=== PATIENT | male | born 1960 | race Caucasian/White ===

== ENCOUNTER 2017-05-06 20:12 | Observation (INO) | payer BC, OTHER ==
[~2017-05-06] VITALS: Ht 177.8 cm; Wt 95.0 kg
[~2017-05-06 20:12] MED LIST: ASCO25TA PO; VIAG100T PO; [UNRECOGNIZED DRUG - CODE] PO
[2017-05-06] MEDS ORDERED: ADENOSINE 6MG/2ML INJECTION (J0153) As Ordered ONE (20:26)
[2017-05-06] MEDS ORDERED: METOPROLOL 5 MG/5 ML VIAL As Ordered ONE (20:30)
[2017-05-06] MEDS ORDERED: ADENOSINE 6MG/2ML INJECTION (J0153) IV STA (20:30)
[2017-05-06] MEDS: METOPROLOL 5 MG/5 ML VIAL IV SCH ×6 (20:35→22:55)
[2017-05-06 20:45] LABS: BASO # 0.1 K/mm3 (0.0-0.2); BASO % 0.5 % (0.0-1.0); EOS # 0.2 K/mm3 (0.0-0.50); EOS % 1.8 % (0.0-3.0); LARGE UNSTAINED CELL # 0.2 K/mm3 (0.0-0.4); LARGE UNSTAINED CELL % 1.2 % (0.0-4.0); LYMPH # 1.5 K/mm3 (1.5-4.5); LYMPH % 9.7 % (24.0-44.0); MEAN CORPUSCULAR HEMOGLOBIN 29.6 pg (27.0-33.0); MEAN CORPUSCULAR HGB CONC 34.1 g/dl (32.0-36.5); MEAN CORPUSCULAR VOLUME 87.1 fl (80.0-96.0); MONO # 0.8 K/mm3 (0.0-0.8); MONO % 5.6 % (0.0-5.0); NEUTROPHILS # 11.3 K/mm3 (1.8-7.7); NEUTROPHILS % 81.2 % (36.0-66.0); PLATELET COUNT, AUTOMATED 283 k/mm3 (150-450); RED CELL DISTRIBUTION WIDTH 13.3 % (11.5-14.5); WHITE BLOOD COUNT 13.9 K/mm3 (4.0-10.0)
[2017-05-06] MEDS ORDERED: NS 1,000 ML IV ONE (20:45)
[2017-05-06 21:01] LABS: ANION GAP 9 MEQ/L (8-16); BLOOD UREA NITROGEN 11 MG/DL (7-18); CALCIUM LEVEL 9.6 MG/DL (8.5-10.1); CARBON DIOXIDE LEVEL 26 MEQ/L (21-32); CHLORIDE LEVEL 107 MEQ/L (98-107); CREATININE FOR GFR 0.95 MG/DL (0.70-1.30); GLOMERULAR FILTRATION RATE > 60.0 (>56); GLUCOSE, FASTING 103 MG/DL (70-105); MAGNESIUM LEVEL 2.3 MG/DL (1.8-2.4); POTASSIUM SERUM 3.8 MEQ/L (3.5-5.1); SODIUM LEVEL 142 MEQ/L (136-145)
[2017-05-06] MEDS ORDERED: AMIODARONE HCL 150 MG in APPROPRIATE DILUENT 1 EA IV ONE (21:15)
[2017-05-06] MEDS ORDERED: METOPROLOL TART 50 MG TAB PO ONE (21:15)
[2017-05-06] MEDS ORDERED: VITA-130 PO (22:15)
[2017-05-06] MEDS ORDERED: SILD50TA PO (22:15)
[2017-05-06] MEDS ORDERED: VITA400C2 PO (22:15)
[2017-05-07] MEDS ORDERED: ACETAMINOPHEN TAB 650MG DOSE (2X325MG) PO PRN (01:00)
[2017-05-07 04:30] VITALS: BP 143/84
[2017-05-07] MEDS ORDERED: METOPROLOL TART 25 MG TABLET PO SCH (06:00)
[2017-05-07 08:00] VITALS: BP 123/78
[2017-05-07 08:22] VITALS: BP 123/78
--- NOTE | 2017-05-07 08:52 | CR ---
DATE OF CONSULTATION: 05/07/2017 REFERRING PHYSICIAN: Dr. Vasquez, emergency room. INDICATION: Atrial flutter. HISTORY OF PRESENT ILLNESS: Mr. Arenas is previously unknown to me. He is a very pleasant 57-year-old man who has no significant past medical history. He presented to the emergency room (ER) yesterday for sensation of palpitations. He tells me that the palpitations started just yesterday. He just did not feel "right." He noticed that each time he did something physical, his heart rate would be racing, and he would feel unusually tired. Eventually, when the symptoms started to be very prominent just after he took shower, he came to ER for evaluation. On his arrival, he was found to be in atrial flutter with 2:1 conduction and ventricular rate 164 beats per minute. He was given total three doses of intravenous (IV) metoprolol that did not have a significant effect but eventually received 50 mg of metoprolol and 150 mg IV amiodarone and converted to sinus rhythm. Then, during the night, he had some episode what looks to be atrial fibrillation that were short-lived and eventually converted to sinus rhythm and stayed in sinus rhythm towards morning hours. This morning, he feels well and would like to go home. He denies any associated chest discomfort or shortness of breath. There were no near-syncopal sensations. At his baseline, he is an active man and reports good exertional tolerance. He denies any anginal symptoms. He has not had any chronic diseases and has not seen a physician on regular basis. PAST MEDICAL HISTORY: Denies hypertension, diabetes, or dyslipidemia. He reports having colonoscopy last year after one episode of bloody bowel movement. Apparently, only hemorrhoids were found. 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 He quit smoking many years ago. Reports having one beer a day. FAMILY HISTORY: Is negative for coronary artery disease in first-degree relatives. His mother supposedly during surgery for some form of aneurysm. His father of lung cancer. REVIEW OF SYSTEMS: There is no history of stroke. No recent fever, chills, nausea, vomiting, and diarrhea. No other symptoms to suggest viral or other infection. He denies any excess alcohol. He does report that lately he has been under a large amount of stress related to reconstruction of his house. No chest pain. No syncope. No near-syncope. No abdominal pain. No genitourinary symptoms. No peripheral edema. No allergies. OUTPATIENT MEDICATIONS: - as needed Viagra use No other medications. PHYSICAL EXAMINATION: Mr. Arenas is a pleasant man. He is in no distress, comfortably lying in emergency room bed. Blood pressure 123/78, heart rate has been in 60s. He is afebrile. He is in sinus rhythm. Saturation 97% room air. Weight is documented 95 kg. His jugular venous pressure (JVP) is not elevated. I do not appreciate any carotid bruit. Lungs are clear to auscultation. Heart examination reveals regular rhythm. No gallop, rub, or murmur is appreciated. Abdomen is soft without tenderness or rebound tenderness. No hepatosplenomegaly. No peripheral edema. Good peripheral pulses. Neurologically, he is intact. No skin lesions. 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 Basic metabolic panel is normal. He has two sets of cardiac enzymes that are normal. There is an electrocardiogram (ECG) from yesterday 2029 revealing typical atrial flutter with ventricular rate 164 beats per minute; and then there is another electrocardiogram (EKG) from 02:16 this morning revealing sinus rhythm with one nonconducted PAC, and yet another one from last night at 2320 revealing sinus rhythm and delayed R-wave progression but otherwise fairly unremarkable EKG. ASSESSMENT AND PLAN: Mr. Arenas is a 57-year-old man who has no significant past medical history. Presents with atrial flutter with 2:1 conduction. He converted to sinus rhythm after receiving some metoprolol and a single dose of amiodarone. He feels better this morning. He has normal physical examination, and the arrhythmia, besides palpitations, was not associated with any anginal symptoms or any shortness of breath. In my opinion, the patient can be discharged home. I would keep him on full-dose aspirin and metoprolol 25 mg twice a day. I will schedule followup appointment in our office next week. Otherwise, I instructed him to call the office if there are any recurrent arrhythmias. Before his discharge, though, I recommend to ambulate him in emergency room. If there should be recurrent arrhythmias, we may need to keep him longer, but I consider that less likely.
[2017-05-07] MEDS ORDERED: ENOXAPARIN 40 MG/0.4 ML SYRINGE (J1650) SC SCH (09:00)
[2017-05-07] MEDS ORDERED: PANTOPRAZOLE 40MG TAB (PROTONIX) PO SCH (09:00)
[2017-05-07] MEDS ORDERED: METOPROLOL TART 50 MG TAB PO SCH (09:00)
[2017-05-07] MEDS ORDERED: ASPI324T PO (10:46)
[2017-05-07] MEDS ORDERED: METO25TAB PO (10:46)
--- NOTE | 2017-05-07 17:39 | ECGEPIP ---
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
--- NOTE | 2017-05-07 17:43 | ECGEPIP ---
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
--- NOTE | 2017-05-07 17:48 | ECGEPIP ---
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 CLINICALLY CORRELATE CONDUCTION ABNORMALITY Electronically Signed On 05-07-2017 17:48:24 EDT by Huyen Guajardo
--- NOTE | 2017-05-07 18:28 | DSES ---
DATE OF ADMISSION: 05/06/2017 DATE OF DISCHARGE: 05/07/2017 ATTENDING PHYSICIAN: Dr. Clair Forrest DICTATED BY: Dr. Clair Forrest PRIMARY CARE PHYSICIAN: Unknown. REFERRING PHYSICIAN: None. CONSULTING PHYSICIAN: Dr. Mccauley. CONDITION ON DISCHARGE: Stable. FINAL DIAGNOSIS: Atrial flutter. PROCEDURES: None. HISTORY OF THE PRESENT ILLNESS: The patient is a 57-year-old male with no significant past medical history, presented to the emergency room with palpitations. Upon arrival to the emergency room, the patient was found to be in atrial fibrillation. He was found to have a heart rate of 164 with atrial flutter of 2:1, received metoprolol IV 5 mg times three doses, then he was transitioned to metoprolol 50 mg by mouth as well as received amiodarone 150 mg IV. The patient then returned to sinus rhythm and was evaluated by cardiology in the morning. HOSPITAL COURSE: 1. Palpitations likely secondary to atrial flutter. The patient initially presented with palpitations, which had resolved. Physical unrevealing. The patient remained hemodynamically stable. The patient was controlled with metoprolol by mouth and was put on high dose aspirin 325 mg. The patient was seen by cardiology and cleared for discharge, and the patient will be followed up with cardiology as an outpatient as well as primary care provider. 2. Deep vein thrombosis (DVT) prophylaxis. The patient had been put on compression devices, and he will be continued with aspirin as an outpatient. DISCHARGE MEDICATIONS: The patient will be discharged home with the following medications: - aspirin 325 mg by mouth daily - metoprolol 25 mg by mouth twice a day Continued medications include: -ascorbic acid 500 mg by mouth daily - sildenafil 50 mg by mouth daily as needed for erectile dysfunction - vitamin E 400 units by mouth daily DISCHARGE INSTRUCTIONS: The patient was advised to followup with his primary care provider and cardiology within the next 1 week. He was advised to remain compliant with treatment plan and medications and return to the emergency room if he experiences any problems. Time spent on discharge: 35 minutes.
--- NOTE | 2017-05-07 22:07 | HPE ---
DATE OF ADMISSION: 05/06/2017 CHIEF COMPLAINT: Palpitations. PRIMARY CARE PROVIDER: He currently has none. HISTORY OF PRESENT ILLNESS: This is a 57-year-old male stating that for two days he had noticed a racing heart, palpitations, especially when doing any exertion and climbing stairs. He was short of breath. He came to the emergency room. Upon arrival and EKG was done, which showed him to be in atrial flutter with a rapid ventricular response of 167. The emergency room physician gave him adenosine, the rate slowed slightly and it remained in atrial flutter. He gave him IV Lopressor times three doses and discussed with spinning bath patroller, Dr. Mccauley who recommended amiodarone 150 mg IV, which he received and subsequently converted to sinus rhythm. His breathing improved and he felt much better. When he arrived in the emergency room his respiratory rate was 22, his pulse was 165, blood pressure was 143/89, he had a temperature of 98 with 02 saturation of 98%. After converting to sinus rhythm, he was running in the 70s with a blood pressure of 116/80, pulse of 76, respirations of 16 and a pulse oximetry of 95% on room air. Laboratory studies were done. White count was 13.9, hemoglobin 16.1, hematocrit 47.1, platelets are 283. Magnesium 2.3, electrolytes were normal. BUN 11, creatinine 0.95. Troponin times 2 were less than 0.02. Assessment was done and decision was made to admit patient for observation status for atrial flutter and stabilization. ALLERGIES: No known allergies. SOCIAL HISTORY: He is . He drinks one beer with dinner each night. Smoking: He quit three years ago. PAST MEDICAL HISTORY: Essentially negative. PAST SURGICAL HISTORY: Repair of fractured skull as a child. Rhinoplasty years ago. HOME MEDICATIONS: - Viagra 50 mg by mouth as needed as needed for erectile dysfunction - vitamin C 500 mg by mouth daily - vitamin E 400 units by mouth daily FAMILY HISTORY: Noncontributory. REVIEW OF SYSTEMS: 10-system review is essentially negative other than the shortness of breath on exertion and palpitations as mentioned in the HPI. PHYSICAL EXAMINATION: 57-year-old cooperative male. No acute distress. Height 70 inches, weight 95 kg, BMI 30.1 kg. The patient is alert and oriented times three. Pupils equal and reactive to light. Extraocular movements intact. Cornea and sclera clear. Conjunctiva normal. No facial asymmetry. Pharynx, tongue, and gums pink and moist. Tongue is midline. Neck is supple, without lymphadenopathy. No thyromegaly. No goiter. Carotids 2+ without bruits. Chest clear to auscultation, without wheeze or retraction. Heart is regular. Abdomen benign. Bowel sounds positive. /Rectal: Not done. Extremities show equal strength. Full range of motion. No cyanosis, clubbing or edema. Peripheral pulses equal and palpable bilaterally. Skin is warm and dry. IMPRESSION AND PLAN: Atrial flutter. Now currently sinus rhythm. Cardiac consult. Metoprolol 50 mg twice a day as recommended by cardiology. Serial cardiac enzymes. The patient will be admitted to observation status to the telemetry floor.
--- NOTE | 2017-05-08 01:01 | ECGEPIP ---
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
== END 2017-05-07 11:05 | disposition home or self-care (01) ==
LOC: M ED 21:45 → M ED INP 21:46
PROVIDERS: ADMIT Internal Medicine; ATTEND Internal Medicine
DX: I48.92 Unspecified atrial flutter (principal); Z87.891 Personal history of nicotine dependence; Z79.82 Long term (current) use of aspirin
CPT/HCPCS: 36415; 80048; 82550; 82553; 83735; 85025; 93005; 93041; 94760; 96372; 96374; 96375; 96376; 99285; J0153; J1650

== ENCOUNTER → 2017-05-15 | Outpatient (CLI) | payer BC, OTHER ==
[~2017-05-15] MED LIST changes: +ASPI324T PO; +METO25TA4 PO; +SILD50TA PO; +VITA1OIL PO; +VITA400C7 PO; +VITA500T PO; -[UNRECOGNIZED DRUG - CODE] PO
== END ==
LOC: M WUC 08:24
PROVIDERS: ATTEND Internal Medicine Cardiovascular Disease
DX: R06.02 Shortness of breath (principal); I48.92 Unspecified atrial flutter

== ENCOUNTER 2023-09-19 12:00 | Emergency (ER) | payer MEDICARE, OTHER, BC ==
[~2023-09-19] VITALS: Ht 177.8 cm; Wt 92.5 kg
[~2023-09-19 12:00] MED LIST changes: -ASCO25TA PO; +VITA-243 PO; +VITA250T20 PO; -VITA500T PO
[2023-09-19] MEDS ORDERED: ATOR1TAB19 (12:13)
[2023-09-19] MEDS ORDERED: ELIQ5TAB (12:13)
[2023-09-19] MEDS ORDERED: METO50TA7 PO (12:13)
[2023-09-19] MEDS ORDERED: METOPROLOL TART 25 MG TABLET PO ONE (12:25)
[2023-09-19] MEDS: METOPROLOL 5 MG/5 ML VIAL IV PRN ×3 (12:58→13:20)
[2023-09-19 13:00] LABS: BASO # 0.1 10^3/uL (0.0-0.2); BASO % 0.6 % (0.0-1.0); EOS # 0.2 10^3/uL (0.0-0.5); EOS % 1.9 % (0.0-3.0); HEMATOCRIT 49.4 % (42.0-52.0); HEMOGLOBIN 16.3 g/dl (13.5-17.5); LYMPH % 8.5 % (24.0-44.0); MEAN CORPUSCULAR HEMOGLOBIN 29.4 pg (27.0-33.0); MONO # 0.8 10^3/uL (0.0-0.8); MONO % 7.3 % (2.0-8.0); NEUTROPHILS # 9.1 10^3/uL (1.5-8.5); NEUTROPHILS % 81.3 % (36.0-66.0); PLATELET COUNT, AUTOMATED 265 10^3/uL (150-450); RED BLOOD COUNT 5.55 10^6/uL (4.30-6.10); WHITE BLOOD COUNT 11.2 10^3/uL (4.0-10.0)
[2023-09-19 13:17] LABS: INR 1.34; PROTHROMBIN TIME 16.2 SECONDS (12.5-14.5)
[2023-09-19 13:18] LABS: PARTIAL THROMBOPLASTIN TIME 36.4 SECONDS (24.8-34.2)
[2023-09-19 13:20] VITALS: BP 134/100
[2023-09-19 14:54] LABS: LIPASE 28 U/L (12-53)
[2023-09-19 14:56] LABS: ALBUMIN 4.2 G/DL (3.2-5.2); ALKALINE PHOSPHATASE 68 U/L (46-116); ALT/SGPT 29 U/L (7.0-40); AST/SGOT 24 U/L (<34); BILIRUBIN,DIRECT 0.4 MG/DL (<0.4); BILIRUBIN,TOTAL 1.2 MG/DL (0.3-1.2); BLOOD UREA NITROGEN 10 MG/DL (9-23); CALCIUM LEVEL 9.3 MG/DL (8.3-10.6); CARBON DIOXIDE LEVEL 21 MMOL/L (20-31); CHLORIDE LEVEL 108 MMOL/L (98-107); GLOMERULAR FILTRATION RATE > 60.0 (>49); GLUCOSE, FASTING 98 MG/DL (74-106); MAGNESIUM LEVEL 2.2 MG/DL (1.8-2.4); POTASSIUM SERUM 4.2 MMOL/L (3.5-5.1); SODIUM LEVEL 141 MMOL/L (136-145); TOTAL PROTEIN 7.1 G/DL (5.7-8.2)
[2023-09-19] MEDS ORDERED: DIGOXIN INJ 0.5 MG/2 ML AMP IV STA (14:57)
[2023-09-19 14:58] LABS: FREE T4 1.28 NG/DL (0.89-1.76)
[2023-09-19 14:59] LABS: THYROID STIMULATING HORMONE 2.631 uIU/ML (0.55-4.78)
[2023-09-19] MEDS ORDERED: LOPR1TAB6 PO (17:16)
[2023-09-19] MEDS ORDERED: DIGO0.253 PO (17:16)
[2023-09-19] MEDS ORDERED: BLOOKIT XX (17:42)
[2023-09-19 17:45] VITALS: BP 135/85; TEMP 97.9; O2SAT 95
== END 2023-09-19 17:50 | disposition home or self-care (01) ==
LOC: M ED 12:00
DX: I48.3 Typical atrial flutter (principal); I44.1 Atrioventricular block, second degree; I44.4 Left anterior fascicular block; I25.2 Old myocardial infarction; Z79.01 Long term (current) use of anticoagulants; Z79.02 Long term (current) use of antithrombotics/antiplatelets; Z79.899 Other long term (current) drug therapy
CPT/HCPCS: 71045; 80048; 80076; 83690; 83735; 83880; 84439; 84443; 85025; 85610; 85730; 93005; 93041; 94760; 96374; 96375; 96376; 99285; J1160

== ENCOUNTER → 2023-10-23 | Day surgery (SDC) | payer MEDICARE, BC, OTHER ==
[~2023-10-23] VITALS: Ht 177.8 cm; Wt 92.0 kg
[~2023-10-23] MED LIST changes: +AMIO200T49 PO; +ATOR1TAB19 PO; +BLOOKIT XX; +DIGO0.253 PO; +ELIQ5TAB PO; +LIDOCAINE 2% 100MG/5ML SDV (FOR ANES.) As Ordered ONE; +LOPR1TAB6 PO; +LR 1,000 ML IV SCH; +METO1TAB87 PO; +METO50TA7 PO; +ONDANSETRON 4MG 2ML VIAL IV PRN; +VITA-148 PO; +fentaNYL 100 MCG/2 ML INJECTION IV PRN; +propofoL 200 MG/20 ML VIAL As Ordered ONE
[2023-10-23 08:00] VITALS: BP 135/94; TEMP 97.6; O2SAT 97
== END | disposition home or self-care (01) ==
LOC: M SDC 06:14
PROVIDERS: ATTEND Internal Medicine Cardiovascular Disease
DX: I48.92 Unspecified atrial flutter (principal); R94.31 Abnormal electrocardiogram [ECG] [EKG]; I10 Essential (primary) hypertension; E78.5 Hyperlipidemia, unspecified; Z87.891 Personal history of nicotine dependence; Z79.899 Other long term (current) drug therapy; Z79.01 Long term (current) use of anticoagulants

== ENCOUNTER 2023-10-25 08:20 | Observation (INO) | payer MEDICARE, BC, OTHER ==
[~2023-10-25] VITALS: Ht 177.8 cm; Wt 90.1 kg
[~2023-10-25 08:20] MED LIST changes: -LIDOCAINE 2% 100MG/5ML SDV (FOR ANES.) As Ordered ONE; -LR 1,000 ML IV SCH; -METO1TAB87 PO; -ONDANSETRON 4MG 2ML VIAL IV PRN; -fentaNYL 100 MCG/2 ML INJECTION IV PRN; -propofoL 200 MG/20 ML VIAL As Ordered ONE
[2023-10-25 08:48] LABS: VENOUS BASE EXCESS 1.2 (-2.0-2.0); VENOUS HCO3 26.8 MMOL/L (23.0-27.0); VENOUS O2 SATURATION 67.3 % (60.0-80.0); VENOUS PARTIAL PRESSURE O2 34.9 mmHg (30.0-50.0); VENOUS PH 7.384 UNITS (7.330-7.430); VENOUS STANDARD HCO3 24.7 MMOL/L; VENOUS TOTAL CO2 28.3 MMOL/L (24.0-28.0)
[2023-10-25 08:52] LABS: BASO # 0.1 10^3/uL (0.0-0.2); EOS # 0.9 10^3/uL (0.0-0.5); EOS % 9.5 % (0.0-3.0); HEMATOCRIT 45.1 % (42.0-52.0); HEMOGLOBIN 15.1 g/dl (13.5-17.5); LYMPH # 0.8 10^3/uL (1.5-5.0); LYMPH % 8.1 % (24.0-44.0); MEAN CORPUSCULAR HEMOGLOBIN 29.8 pg (27.0-33.0); MEAN CORPUSCULAR HGB CONC 33.5 g/dl (32.0-36.5); MEAN CORPUSCULAR VOLUME 89.1 fl (80.0-96.0); MONO # 0.7 10^3/uL (0.0-0.8); MONO % 7.4 % (2.0-8.0); NEUTROPHILS # 6.9 10^3/uL (1.5-8.5); NEUTROPHILS % 73.5 % (36.0-66.0); PLATELET COUNT, AUTOMATED 206 10^3/uL (150-450); RED BLOOD COUNT 5.06 10^6/uL (4.30-6.10); WHITE BLOOD COUNT 9.3 10^3/uL (4.0-10.0)
[2023-10-25 09:25] LABS: CK-MB VALUE MASS < 1.0 NG/ML (<3.6)
[2023-10-25 09:27] LABS: BLOOD UREA NITROGEN 11 MG/DL (9-23); CALCIUM LEVEL 8.4 MG/DL (8.3-10.6); CARBON DIOXIDE LEVEL 27 MMOL/L (20-31); CHLORIDE LEVEL 110 MMOL/L (98-107); CREATININE FOR GFR 0.82 MG/DL (0.70-1.30); GLOMERULAR FILTRATION RATE > 60.0 (>49); GLUCOSE, FASTING 105 MG/DL (74-106); MAGNESIUM LEVEL 1.9 MG/DL (1.8-2.4); POTASSIUM SERUM 4.1 MMOL/L (3.5-5.1); SODIUM LEVEL 143 MMOL/L (136-145)
[2023-10-25 09:29] LABS: FREE T4 1.34 NG/DL (0.89-1.76); THYROID STIMULATING HORMONE 5.359 uIU/ML (0.55-4.78)
[2023-10-25 09:31] LABS: CPK CREATINE PHOSPHOKINASE 113 U/L (46-171); MB/CK RELATIVE INDEX 0.88 (< OR =4)
[2023-10-25 09:46] LABS: INR 1.21; PROTHROMBIN TIME 14.9 SECONDS (12.5-14.5)
[2023-10-25 10:05] LABS: CK-MB VALUE MASS < 1.0 NG/ML (<3.6); CPK CREATINE PHOSPHOKINASE 115 U/L (46-171); MB/CK RELATIVE INDEX 0.86 (< OR =4)
[2023-10-25 12:05] LABS: CK-MB VALUE MASS < 1.0 NG/ML (<3.6)
[2023-10-25 12:09] LABS: CPK CREATINE PHOSPHOKINASE 99 U/L (46-171); MB/CK RELATIVE INDEX 1.01 (< OR =4)
[2023-10-25] MEDS ORDERED: MED REC IN PROGRESS XX SCH (13:40)
[2023-10-25] MEDS ORDERED: MECLIZINE 25 MG TABLET PO PRN (14:15)
[2023-10-25] MEDS ORDERED: METO1TAB87 PO (15:34)
[2023-10-25] MEDS ORDERED: HOME MED LIST COMPLETE! XX SCH (15:45)
[2023-10-25 16:40] VITALS: BP 141/90; TEMP 98.1; O2SAT 95
[2023-10-25] MEDS: AMIODARONE 200 MG TAB (PACERONE) PO SCH (17:58)
[2023-10-25] MEDS: amLODIPine 5 MG TAB PO SCH (17:59)
[2023-10-25 19:52] VITALS: BP 126/89; TEMP 99; O2SAT 95
[2023-10-25] MEDS: APIXABAN 5 MG TAB (ELIQUIS) PO SCH (20:53)
[2023-10-25] MEDS: METOPROLOL TART 25 MG TABLET PO SCH (20:54)
[2023-10-25] MEDS ORDERED: ATORVASTATIN 10 MG TAB PO SCH (21:00)
[2023-10-26 06:12] LABS: BLOOD UREA NITROGEN 9 MG/DL (9-23); CALCIUM LEVEL 8.8 MG/DL (8.3-10.6); CARBON DIOXIDE LEVEL 28 MMOL/L (20-31); CHLORIDE LEVEL 105 MMOL/L (98-107); CREATININE FOR GFR 0.83 MG/DL (0.70-1.30); GLOMERULAR FILTRATION RATE > 60.0 (>49); GLUCOSE, FASTING 103 MG/DL (74-106); POTASSIUM SERUM 3.2 MMOL/L (3.5-5.1); SODIUM LEVEL 141 MMOL/L (136-145)
[2023-10-26 06:15] VITALS: BP 128/79; TEMP 98.4; O2SAT 94
[2023-10-26] MEDS: AMIODARONE 200 MG TAB (PACERONE) PO SCH (08:13)
[2023-10-26] MEDS: APIXABAN 5 MG TAB (ELIQUIS) PO SCH (08:13)
[2023-10-26 08:14] VITALS: BP 128/88
[2023-10-26] MEDS: amLODIPine 5 MG TAB PO SCH (08:14)
[2023-10-26] MEDS: METOPROLOL TART 25 MG TABLET PO SCH (08:14)
[2023-10-26] MEDS ORDERED: MECL-86 PO (08:55)
[2023-10-26] MEDS ORDERED: POTASSIUM CHLORIDE 10MEQ SR TABLET PO ONE (09:00)
== END 2023-10-26 11:10 | disposition home or self-care (01) ==
LOC: M ED 08:20 → EDBD 08:20 → M ED INP 08:21 → ENRESERV 15:11 → M MSPAV 16:24
PROVIDERS: ADMIT Internal Medicine; ATTEND Internal Medicine
DX: H81.10 Benign paroxysmal vertigo, unspecified ear (principal); R53.1 Weakness; I10 Essential (primary) hypertension; Z86.79 Personal history of other diseases of the circulatory system; Z79.01 Long term (current) use of anticoagulants; Z79.899 Other long term (current) drug therapy
CPT/HCPCS: 36415; 70450; 70544; 70551; 71045; 80048; 81001; 82550; 82553; 82803; 83735; 84439; 84443; 84484; 85025; 85610; 87486; 87581; 87633; 87798; 93005; 93041; 93880; 94760; 97112; 97161; 99285; G0378

== ENCOUNTER 2024-06-29 06:02 | Day surgery (SDC) | payer MEDICARE, BC ==
[~2024-06-29] VITALS: Ht 177.8 cm; Wt 94.8 kg
[~2024-06-29 06:02] MED LIST changes: +D3 H10002 PO; +FLUO1CRE2 TOP; +MECL-86 PO; +METO1TAB87 PO
[2024-06-29] MEDS ORDERED: LR 1,000 ML IV SCH (06:25)
[2024-06-29 07:58] VITALS: BP 180/99; TEMP 97.6; O2SAT 98
== END 2024-06-29 08:20 | disposition home or self-care (01) ==
LOC: M SDC 06:02
PROVIDERS: ATTEND Internal Medicine Cardiovascular Disease
DX: I48.92 Unspecified atrial flutter (principal); I10 Essential (primary) hypertension; E78.5 Hyperlipidemia, unspecified; Z87.891 Personal history of nicotine dependence; Z79.01 Long term (current) use of anticoagulants; Z79.899 Other long term (current) drug therapy